=== PATIENT | male | born 1960 | race Caucasian/White ===

== ENCOUNTER → 2020-02-27 | Outpatient (CLI) | payer OTHER ==
--- NOTE | 2020-02-28 10:30 | MRI ---
EXAM DESCRIPTION: Lumbar Spine w/o Contrast : Magnetic Resonance Imaging. CLINICAL HISTORY: RADICULOPATHY LUMBAR REGION COMPARISON: Lumbar radiographs February 15. TECHNIQUE: Multiplanar, multiple standard sequences, non contrast MRI, lumbar spine. FINDINGS: L5-S1: The disc is well visualized on axial T2 series 501, image 3. Normal signal in the disc with disc space preserved. Hypertrophic changes in the bilateral facet joints and posterior flavum ligaments (canal elements). Mild canal narrowing. Bilateral severe foraminal narrowing versus borderline stenosis caused by disc and bony structures. L2-L3: Disc desiccation and disc space loss. Increased T2 signal in the protruding disc in the midline, measuring 6 mm AP and 15 mm transverse. The hyperintense disc is also extruded right inferior, completely effacing the right subarticular recess with mass effect on the right L3 nerve. This extruded segment measures 18 x 10 mm in the sagittal plane and 9 mm in the transverse axis with mass effect on the anterior right thecal sac. 3.5 mm grade 1 retrolisthesis. Mild hypertrophy of the canal elements. AP canal diameter 6 mm. Bilateral mild foraminal narrowing. L4-L5: Disc desiccation and minimal disc space loss. Posterior mild endplate reactive changes. Grade 1 anterolisthesis 2 mm. Posterior broad-based disc bulge. Hyperintense T2 annular fissure in the segment of disc bulging into the left foramen and abutting the left L4 nerve. Moderate to severe narrowing of the foramen and moderate narrowing of the right foramen. Hypertrophic changes in the canal elements more severe on the left. AP canal diameter 7 mm. L3-L4: Disc desiccation and disc space loss. Early endplate changes inferior L3. Posterior broad-based disc bulge with bulging of the nucleus in the midline and left of midline but no distinct annular fissure. Bilateral subarticular recess narrowing abutting the descending L4 nerve roots. Hypertrophic changes in the canal elements with AP canal diameter 7.5 mm. Mild to moderate left foraminal narrowing and moderate right foraminal narrowing. L1-L2: Disc space preserved and normal signal in the disc. Canal elements hypertrophy on the right. Moderate canal narrowing and bilateral foramina are patent. L5-S1: Normal signal in the disc with disc space preserved. Minimal hypertrophic changes in the canal elements. Canal and bilateral foramina are patent. Conus terminates at this level. Minimal levoscoliosis L2-L4 Paravertebral soft tissues negative. Distal cord normal signal and caliber. Hyperintense STIR edema signal in the junction of the right pedicle and lamina at L5. Normal marrow signal in the remaining vertebral bodies and the posterior elements. Vertebral bodies are not compressed at any level. IMPRESSION: 1. Herniated L2-L3 disc in the midline with inferior extrusion into the right subarticular recess and right ventral canal with compromise of the descending right L3 nerve. Severe right paracentral canal stenosis. Grade 1 retrolisthesis. Bilateral mild foraminal narrowing. 2. Intraforaminal L4-L5 disc annular fissure bulge into the left foramen and abutting the left L4 nerve. Hypertrophic changes in the canal elements. Moderate central canal stenosis. 3. Bilateral severe foraminal narrowing versus borderline stenosis caused by disc and bony structures at L5-S1. 4. Posterior L3-L4 disc bulge and canal elements hypertrophy causing multifactorial mild to moderate central canal stenosis. 5. Please refer to FINDINGS for discussion of the results at other disc space levels. Electronically signed by: Gianluca Akers MD 02/28/2020 10:28 AM CDT
== END ==
LOC: MRI 08:09
PROVIDERS: ATTEND Family Medicine Sports Medicine
DX: M51.16 Intervertebral disc disorders with radiculopathy, lumbar region (principal); M48.061 Spinal stenosis, lumbar region without neurogenic claudication